=== PATIENT | male | born 1970 | race Caucasian/White ===

== ENCOUNTER 2019-06-07 16:47 | Inpatient (IN) | payer MEDICAID ==
[~2019-06-07] VITALS: Ht 175.3 cm; Wt 69.0 kg
[2019-06-07] MEDS ORDERED: DIPH,PERTUSS(ACELL),TET VAC/PF 0.5 ML IM-VACC ONE ×2 (17:34→18:00)
[2019-06-07 18:06] LABS: MEAN CORPUSCULAR HEMOGLOBIN 31.2 pg (27.5-34.5); MEAN CORPUSCULAR HGB CONC 33.3 g/dL (33.2-36.2); MEAN CORPUSCULAR VOLUME 93.6 fL (81-97); MEAN PLATELET VOLUME 7.3 fL (7.4-10.4); PLATELET COUNT 344 x10^3/uL (130-400); RED BLOOD COUNT 4.62 x10^6/uL (4.38-5.82); RED CELL DISTRIBUTION WIDTH 14.3 % (9.4-14.8)
[2019-06-07 18:19] LABS: ALBUMIN 3.4 g/dL (3.4-5.0); ANION GAP 7 mmol/L (5-15); CALCIUM 8.9 mg/dL (8.5-10.1); CHLORIDE 107 mmol/L (98-107)
[2019-06-07 18:21] LABS: CREATININE 0.83 mg/dL (0.7-1.3)
[2019-06-07 18:27] LABS: MD YES
[2019-06-07] MEDS ORDERED: SODIUM CHLORIDE FLUSH 10ML SYR IVF ONE (18:30)
[2019-06-07 18:36] LABS: LYMPH#(MANUAL) 3.54 x10^3/uL (1-3.4); LYMPHS% (MANUAL) 30 % (22-44); MONOS#(MANUAL) 1.53 x10^3/uL (0.3-2.7); MONOS% (MANUAL) 13 % (2-9); REACTIVE LYMPHS # (MANUAL) 0.35 x10^3/uL (0-0); REACTIVE LYMPHS % (MANUAL) 3 % (0-0); SEG#(MANUAL) 6.37 x10^3/uL (1.8-6.8); SEGS% (MANUAL) 54 % (42-75)
[2019-06-07 18:37] LABS: <PLATELET ESTIMATE> ADEQUATE; <PLT MORPHOLOGY> NORMAL PLT MORPH; <RBC MORPHOLOGY> NORMAL
--- NOTE | 2019-06-07 18:45 | NUR ---
PT TO BE ADMITTED. AWARE AND AGREES. BC X2, PIV EST. PT NPO.
--- NOTE | 2019-06-07 19:18 | NUR ---
vss. pt asking for pain meds. provider notified. pinky finger L side swollen, red, warm. pain into outer edge L palm. awaiting admit. as
[2019-06-07] MEDS ORDERED: IBUPROFEN 200 MG TABLET ONE (19:24)
[2019-06-07] MEDS ORDERED: AMPICILLIN/SULBACTAM 3 GM in SODIUM CHLORIDE 0.9% 100 ML IV ONE (19:30)
[2019-06-07] MEDS ORDERED: SODIUM CHLORIDE FLUSH 10ML SYR IVF PRN (19:30)
[2019-06-07] MEDS ORDERED: IBUPROFEN 200 MG TABLET PO ONE (19:30)
[2019-06-07 19:41] LABS: HCT (SEDRATE) 42.3 % (39.2-51.8)
[2019-06-07] MEDS ORDERED: CEFTRIAXONE PMX 1GM/50ML 50 ML ONE (19:48)
[2019-06-07] MEDS ORDERED: VANCOMYCIN PER PHARMACY MC PRN (20:00)
[2019-06-07] MEDS ORDERED: BACLOFEN 10 MG TABLET PO PRN (20:00)
[2019-06-07] MEDS ORDERED: ONDANSETRON ODT 4 MG PO PRN (20:00)
[2019-06-07] MEDS ORDERED: ONDANSETRON 2MG/ML, 2ML IVPush PRN (20:00)
[2019-06-07] MEDS ORDERED: hydrALAzine 20 MG/ML, 1ML IVPush PRN (20:00)
[2019-06-07] MEDS ORDERED: PROMETHAZINE 25 MG/ML, 1ML IM PRN (20:00)
[2019-06-07] MEDS ORDERED: IBUPROFEN 600 MG TABLET PO PRN (20:00)
[2019-06-07] MEDS ORDERED: ACETAMINOPHEN 325 MG TABLET PO PRN (20:00)
[2019-06-07] MEDS ORDERED: THIAMINE 200 MG in DEXTROSE 5% 50 ML IVPB ONE (20:00)
[2019-06-07] MEDS ORDERED: FOLIC ACID 1 MG TABLET PO ONE (20:00)
[2019-06-07] MEDS ORDERED: LORazepam 1MG TABLET PO PRN ×3 (20:00)
[2019-06-07] MEDS ORDERED: LORazepam 2 MG/ML, 1ML IV PRN ×3 (20:00)
--- NOTE | 2019-06-07 20:04 | NUR ---
REPORT FROM JILLIAN. PT AWAITING ROOM ASSIGNMENT
--- NOTE | 2019-06-07 20:04 | NUR ---
pt moved to room 14. abx infusing per mar. vss. all belongings moved including backpack, watch, and glasses. report to prerna lara. pt verbally abusing this rn and pa, demanding juice, food, and vicodin. call adam in reach, bed repositioned, side rails x2. making bizarre comments about seeing things. as
--- NOTE | 2019-06-07 20:29 | NUR ---
PT SHOUTING AT STAFF BECOMING VERBALLY AGGRESSIVE, PT DEMANDING LIGHTS OFF AND CURSING AND DEMANDING A SANDWICH. PT EDCATED ON PROPER BEHAVIOR. PT STILL VERBALLY ESCALATING.
[2019-06-07] MEDS: CEFTRIAXONE PMX 1GM/50ML 50 ML IV SCH (20:50)
--- NOTE | 2019-06-07 21:38 | NUR ---
PT RESTING ON [facility]. EYES CLOSED NADN
--- NOTE | 2019-06-07 22:56 | NUR ---
REPORT CALLED TO FLOOR RN ALL QUESTIONS ADDRESSED.
[2019-06-07 23:35] VITALS: BP 120/73
[2019-06-07] MEDS ORDERED: PHARMACOKINETIC CONSULTATION MC ONE (23:45)
[2019-06-07] MEDS ORDERED: PHARMACOKINETIC MONITORING MC PRN (23:45)
[2019-06-07] MEDS: NICOTINE 14MG/24 HR PATCH.TD24 TD SCH (23:55)
[2019-06-08] MEDS: VANCOMYCIN 1,300 MG in SODIUM CHLORIDE 0.9% 250 ML IV SCH ×2 (01:29→12:30)
[2019-06-08] MEDS: morphine SULFATE 10 MG/ML, 1ML IVPush PRN ×4 (03:10→16:49)
[2019-06-08] MEDS: NS + 20MEQ KCL 1,000 ML IV SCH ×3 (03:24→22:53)
[2019-06-08 06:51] LABS: ANION GAP 8 mmol/L (5-15); CALCIUM 8.4 mg/dL (8.5-10.1); CHLORIDE 107 mmol/L (98-107)
[2019-06-08 06:54] LABS: CREATININE 0.81 mg/dL (0.7-1.3)
[2019-06-08 06:55] LABS: MEAN CORPUSCULAR HEMOGLOBIN 31.2 pg (27.5-34.5); MEAN CORPUSCULAR HGB CONC 32.8 g/dL (33.2-36.2); MEAN CORPUSCULAR VOLUME 95.2 fL (81-97); MEAN PLATELET VOLUME 7.4 fL (7.4-10.4); PLATELET COUNT 339 x10^3/uL (130-400); RED CELL DISTRIBUTION WIDTH 14.6 % (9.4-14.8)
[2019-06-08 08:28] LABS: MD YES
[2019-06-08 08:31] LABS: BAND#(MANUAL) 0.09 x10^3/uL; BANDS%(MANUAL) 1 % (0-7); BASOS#(MANUAL) 0.09 x10^3/uL (0-0.1); BASOS% (MANUAL) 1 % (0-1); EOS#(MANUAL) 0.19 x10^3/uL (0.0-0.4); EOS% (MANUAL) 2 % (1-7); LYMPH#(MANUAL) 3.48 x10^3/uL (1-3.4); LYMPHS% (MANUAL) 37 % (22-44); MONOS#(MANUAL) 1.22 x10^3/uL (0.3-2.7); MONOS% (MANUAL) 13 % (2-9); SEG#(MANUAL) 4.32 x10^3/uL (1.8-6.8); SEGS% (MANUAL) 46 % (42-75)
[2019-06-08 08:32] LABS: <PLATELET ESTIMATE> ADEQUATE; <PLT MORPHOLOGY> NORMAL PLT MORPH
[2019-06-08 08:33] LABS: <RBC MORPHOLOGY> NORMAL
[2019-06-08 08:53] VITALS: BP 146/81
[2019-06-08] MEDS: LORazepam 0.5MG TABLET PO PRN ×2 (09:33→19:17)
[2019-06-08] MEDS ORDERED: DOCUSATE 100 MG CAPSULE PO PRN (12:00)
[2019-06-08 14:00] VITALS: BP 128/78
[2019-06-08] MEDS ORDERED: GADOTERATE 7.5 MMOL/15 ML SYR ONE (16:15)
[2019-06-08 19:17] VITALS: BP 134/74
[2019-06-08] MEDS: CEFTRIAXONE PMX 1GM/50ML 50 ML IV SCH (23:31)
[2019-06-09] MEDS: VANCOMYCIN 1,300 MG in SODIUM CHLORIDE 0.9% 250 ML IV SCH ×2 (00:07→13:45)
[2019-06-09] MEDS: NICOTINE 14MG/24 HR PATCH.TD24 TD SCH (00:09)
[2019-06-09] MEDS: morphine SULFATE 10 MG/ML, 1ML IVPush PRN ×3 (04:06→21:31)
[2019-06-09] MEDS: LORazepam 2 MG/ML, 1ML IV PRN ×2 (05:50→22:07)
[2019-06-09 08:03] VITALS: BP 126/70
[2019-06-09] MEDS ORDERED: BUPIVACAINE/PF 0.5% ONE (09:21)
[2019-06-09] MEDS ORDERED: NEOSPORIN OINT, 15GM ONE (09:21)
[2019-06-09] MEDS ORDERED: EPINEPHRINE 1 MG/ML, 1ML ONE (09:21)
[2019-06-09] MEDS ORDERED: MIDAZOLAM 1 MG/ML, 2ML ONE (09:42)
[2019-06-09] MEDS ORDERED: FENTANYL PF 100 MCG/2ML ONE (09:42)
[2019-06-09] MEDS ORDERED: PROPOFOL 10 MG/ML, 20ML ONE (09:43)
[2019-06-09] MEDS ORDERED: EPHEDRINE 50 MG/ML, 1ML IVPush PRN (10:00)
[2019-06-09] MEDS ORDERED: LABETALOL 5MG/ML, 20ML IV PRN (10:00)
[2019-06-09] MEDS ORDERED: MEPERIDINE/PF 25MG/ML,1ML IVPush PRN (10:00)
[2019-06-09] MEDS ORDERED: ONDANSETRON ODT 8 MG PO PRN (10:00)
[2019-06-09] MEDS ORDERED: HALOPERIDOL 5 MG/ML IV PRN (10:00)
[2019-06-09] MEDS ORDERED: hydrALAzine 20 MG/ML, 1ML IV PRN (10:00)
[2019-06-09] MEDS ORDERED: ONDANSETRON 2MG/ML, 2ML IV PRN (10:00)
[2019-06-09] MEDS ORDERED: PROMETHAZINE 12.5 MG SUPP PR PRN (10:00)
[2019-06-09] MEDS ORDERED: PROMETHAZINE 25 MG/ML, 1ML IV PRN (10:00)
[2019-06-09] MEDS ORDERED: DIAZEPAM 5 MG/ML, 2ML IVPush PRN (10:00)
[2019-06-09] MEDS ORDERED: MIDAZOLAM 1 MG/ML, 2ML IV PRN (10:00)
[2019-06-09] MEDS ORDERED: OXYcodone 5 MG/5 ML ORAL.SOL UDC PO PRN (10:00)
[2019-06-09] MEDS ORDERED: FENTANYL PF 100 MCG/2ML IV PRN (10:00)
[2019-06-09] MEDS ORDERED: ALBUTEROL SULFATE 2.5 MG/3 ML NPPB PRN (10:00)
[2019-06-09] MEDS ORDERED: ACETAMINOPHEN 325 MG TABLET PO PRN (10:00)
[2019-06-09] MEDS ORDERED: HYDROmorphone 2 MG/ML, 1ML IVPush PRN (10:00)
[2019-06-09] MEDS ORDERED: ONDANSETRON 2MG/ML, 2ML ONE (10:03)
[2019-06-09] MEDS ORDERED: BUPIVACAINE/PF 0.5% INFIL ONE (10:06)
[2019-06-09] MEDS: OXYcodone IR 5MG TABLET PO PRN (13:46)
[2019-06-09 13:51] VITALS: BP 118/77
[2019-06-09 19:07] VITALS: BP 140/84
[2019-06-09] MEDS: NS + 20MEQ KCL 1,000 ML IV SCH (21:32)
[2019-06-10] MEDS: NS + 20MEQ KCL 1,000 ML IV SCH ×2 (00:15→09:45)
[2019-06-10] MEDS: NICOTINE 14MG/24 HR PATCH.TD24 TD SCH (00:15)
[2019-06-10] MEDS: CEFTRIAXONE PMX 1GM/50ML 50 ML IV SCH ×2 (00:15→23:59)
[2019-06-10] MEDS: morphine SULFATE 10 MG/ML, 1ML IVPush PRN ×2 (01:48→05:35)
[2019-06-10] MEDS: VANCOMYCIN 1,500 MG in SODIUM CHLORIDE 0.9% 250 ML IV SCH ×2 (01:49→15:13)
[2019-06-10] MEDS: LORazepam 0.5MG TABLET PO PRN (02:44)
[2019-06-10 02:46] VITALS: BP 148/82
[2019-06-10 07:28] VITALS: BP 145/91
[2019-06-10] MEDS: KETOROLAC 30 MG/1 ML IV PRN ×3 (09:44→18:42)
[2019-06-10] MEDS: LORazepam 2 MG/ML, 1ML IV PRN ×2 (09:44→15:13)
[2019-06-10] MEDS ORDERED: CHLORDIAZEPOXIDE 25 MG CAPSULE PO PRN (10:00)
[2019-06-10 11:56] LABS: MEAN CORPUSCULAR HEMOGLOBIN 30.9 pg (27.5-34.5); MEAN CORPUSCULAR HGB CONC 32.7 g/dL (33.2-36.2); MEAN CORPUSCULAR VOLUME 94.4 fL (81-97); MEAN PLATELET VOLUME 6.8 fL (7.4-10.4); PLATELET COUNT 422 x10^3/uL (130-400); RED BLOOD COUNT 4.52 x10^6/uL (4.38-5.82); RED CELL DISTRIBUTION WIDTH 13.9 % (9.4-14.8)
[2019-06-10 12:03] LABS: ALBUMIN 2.8 g/dL (3.4-5.0); ANION GAP 5 mmol/L (5-15); CALCIUM 8.6 mg/dL (8.5-10.1); CHLORIDE 106 mmol/L (98-107)
[2019-06-10 12:07] LABS: ALANINE AMINOTRANSFERASE 25 U/L (12-78); ALKALINE PHOSPHATASE 67 U/L (45-117); BILIRUBIN,TOTAL 0.4 mg/dL (0.2-1.0); CREATININE 0.69 mg/dL (0.7-1.3); TOTAL PROTEIN 7.3 g/dL (6.4-8.2)
[2019-06-10 12:09] LABS: BASOPHILS # (AUTO) 0.04 x10^3/uL (0-0.1); BASOPHILS % (AUTO) 1 % (0-1); EOSINOPHILS # (AUTO) 0.21 x10^3/uL (0-0.4); EOSINOPHILS % (AUTO) 2 % (1-7); LYMPHOCYTES # (AUTO) 2.24 x10^3/uL (1-3.4); LYMPHOCYTES % (AUTO) 25 % (22-44); MD SCAN; MONOCYTES % (AUTO) 20 % (2-9); NEUTROPHILS # (AUTO) 4.83 x10^3/uL (1.8-6.8); NEUTROPHILS % (AUTO) 53 % (42-75)
[2019-06-10] MEDS: OXYcodone IR 5MG TABLET PO PRN ×2 (15:47→20:42)
[2019-06-10 16:24] LABS: AMPHETAMINE SCREEN, URINE Negative (Negative); BARBITURATE SCREEN, URINE Negative (Negative); BENZODIAZEPINE SCREEN, URINE Negative (Negative); CANNABINOID SCREEN, URINE Positive (Negative); COCAINE SCREEN, URINE Negative (Negative); METHADONE SCREEN, URINE Negative (Negative); OPIATE SCREEN, URINE Positive (Negative)
[2019-06-10 18:52] VITALS: BP 124/79
[2019-06-10] MEDS ORDERED: ASPIRIN 81 MG TABLET CHEW PO ONE (19:00)
[2019-06-10 19:06] LABS: TROPONIN I < 0.015 ng/mL (0.000-0.045)
[2019-06-10] MEDS: LORazepam 1MG TABLET PO PRN (20:43)
[2019-06-11] MEDS: NICOTINE 14MG/24 HR PATCH.TD24 TD SCH
[2019-06-11] MEDS: CEFTRIAXONE PMX 1GM/50ML 50 ML IV SCH (00:57)
[2019-06-11 00:59] LABS: TROPONIN I < 0.015 ng/mL (0.000-0.045)
[2019-06-11] MEDS: OXYcodone IR 5MG TABLET PO PRN (01:04)
[2019-06-11] MEDS: LORazepam 1MG TABLET PO PRN ×2 (01:07→04:54)
[2019-06-11 02:45] VITALS: BP 130/75
[2019-06-11] MEDS: KETOROLAC 30 MG/1 ML IV PRN (04:54)
[2019-06-11] MEDS ORDERED: VANCOMYCIN 1,500 MG in SODIUM CHLORIDE 0.9% 250 ML IV SCH (05:00)
[2019-06-11 07:46] LABS: TROPONIN I < 0.015 ng/mL (0.000-0.045)
[2019-06-11 07:54] VITALS: BP 146/95
[2019-06-11 08:33] LABS: HCT (SEDRATE) 42.1 % (39.2-51.8)
== END 2019-06-11 10:43 | disposition left against medical advice (07) | DRG 316 ==
LOC: ED 18:56 → EDIP 19:26 → SUATTDRO 19:28 → 3N 23:26
PROVIDERS: ADMIT Hospitalist; ATTEND Hospitalist
PROC: 0RBX0ZZ Excision of Left Finger Phalangeal Joint, Open Approach (ICD-10-PCS; principal; 2019-06-09 10:00)
DX: M86.8X4 Other osteomyelitis, hand (principal); F10.231 Alcohol dependence with withdrawal delirium; M00.9 Pyogenic arthritis, unspecified; F10.250 Alcohol dependence with alcohol-induced psychotic disorder with delusions; L02.512 Cutaneous abscess of left hand; L03.114 Cellulitis of left upper limb; Z72.89 Other problems related to lifestyle; F12.90 Cannabis use, unspecified, uncomplicated; F17.200 Nicotine dependence, unspecified, uncomplicated; K59.00 Constipation, unspecified; M19.042 Primary osteoarthritis, left hand; M65.142 Other infective (teno)synovitis, left hand; Z59.0 Homelessness; Z63.8 Other specified problems related to primary support group; Z86.19 Personal history of other infectious and parasitic diseases; M65.9 Synovitis and tenosynovitis, unspecified; Y90.9 Presence of alcohol in blood, level not specified; Z53.29 Procedure and treatment not carried out because of patient's decision for other reasons
CPT/HCPCS: 36415; 73130; 99285; S0020; 80048; 80053; 80202; 80307; 82040; 83605; 83735; 84100; 84484; 85025; 85651; 86140; 87040; 87070; 87075; 87077; 87147; 87186; 87205; 90715; 93005; G0378; J0171; J0295; J0696; J1885; J2250; J2405; J2704; J3010; J3370; J3411; J3480; A9575; J2060; J2270; J7050

== ENCOUNTER 2019-06-12 15:56 | Emergency (ER) | payer MEDICAID ==
[~2019-06-12] VITALS: Ht 175.3 cm; Wt 67.9 kg
--- NOTE | 2019-06-12 17:28 | NUR ---
PT AMBULATED STEADILY TO ROOM FROM LOBBY WITH RN. PT REPORTS INCREASED PAIN/SWELLING OVER L FIFTH FINGER SP SURGERY APPROX ONE MONTH AGO. SUTURES REMAIN IN PLACE. DIGIT ERYTHEMATOUS/EDEMATOUS W/ LIMITED ROM SECONDARY TO SWELLING. NO STREAKING NOTED LEADING AWAY FROM WOUND. WOUND APPEARS CLOSED, NO DRAINAGE NOTED. +CHILLS/SUBJECTIVE FEVER. PT REPORTS BEING SEEN AT [facility] FOR SAME LAST NIGHT AND RX'D ABX WHICH HE DID NOT FILL. BP/SPO2 MONITORING IN PLACE.
[2019-06-12 17:35] VITALS: BP 144/90
--- NOTE | 2019-06-12 17:53 | NUR ---
CONSENT SIGNED TO OBTAIN RECORDS FROM [facility]. FAXED BY
--- NOTE | 2019-06-12 18:20 | NUR ---
PT MEDICATED PER EMAR W/ ABX
[2019-06-12] MEDS ORDERED: SULFAMETH./TRIMETHOPRIM DS 800MG/160MG TABLET ONE ×2 (18:21→18:25)
[2019-06-12] MEDS ORDERED: CEPHALEXIN 500 MG CAPSULE ONE (18:21)
--- NOTE | 2019-06-12 18:26 | NUR ---
PRIOR TO RECIEVING DC PAPERWORK/EDUCATION PT SEEN AMBULATING STEADILY OUT OF DEPARTMENT. RN OFFERED BUS PASS, PT CONTINUED TO WALK OUT OF DEPARTMENT. NAD NOTED.
[2019-06-12] MEDS ORDERED: CEPHALEXIN 500 MG CAPSULE PO ONE (18:30)
[2019-06-12] MEDS ORDERED: SULFAMETH./TRIMETHOPRIM DS 800MG/160MG TABLET PO ONE (18:30)
== END 2019-06-12 18:28 | disposition home or self-care (01) ==
LOC: ED 18:20
DX: L02.512 Cutaneous abscess of left hand (principal); Z59.0 Homelessness
CPT/HCPCS: 99284

== ENCOUNTER 2019-06-12 19:59 | Emergency (ER) | payer MEDICAID ==
[~2019-06-12] VITALS: Ht 175.3 cm; Wt 66.0 kg
[2019-06-12 20:04] VITALS: BP 103/75
== END 2019-06-12 20:09 | disposition left against medical advice (07) ==
LOC: ED 20:00
DX: R00.2 Palpitations (principal); Z53.21 Procedure and treatment not carried out due to patient leaving prior to being seen by health care provider
CPT/HCPCS: 93005